=== PATIENT | male | born 1940 | race Caucasian/White ===

== ENCOUNTER → 2017-04-13 | Outpatient (CLI) | payer MEDICARE ==
[~2017-04-13] MED LIST: ATOR20TA PO; DOXA1TAB2 PO; GARL1TAB PO; METF10002 PO; NAPR500T3 PO; OMEG500C PO; TELM1TAB3 PO
[2017-04-13 14:53] LABS: BLOOD UREA NITROGEN 33 mg/dL (7-18)
[2017-04-13 14:57] LABS: ASPARTATE AMINO TRANSFERASE 10 U/L (15-37)
== END | disposition home or self-care (01) ==
LOC: STAR 13:33
PROVIDERS: ATTEND Surgery
DX: Z01.818 Encounter for other preprocedural examination (principal); R94.31 Abnormal electrocardiogram [ECG] [EKG]; K43.9 Ventral hernia without obstruction or gangrene
CPT/HCPCS: 36415; 80053; 93005

== ENCOUNTER 2017-04-22 11:53 | Day surgery (SDC) | payer MEDICARE ==
[~2017-04-22] VITALS: Ht 172.7 cm; Wt 89.5 kg
[~2017-04-22 11:53] MED LIST changes: +BUPIVACAINE/PF-EPI 0.5% 1:200K ONE; +CEFAZOLIN 1,000 MG ONE; +GLYCOPYRROLATE 0.2MG/1ML ONE; +NEOSTIGMINE 1 MG/ML, 10ML ONE; +PROPOFOL 10 MG/ML, 20ML ONE; +ROCURONIUM 10 MG/ML ONE
[2017-04-22 12:27] VITALS: BP 158/72
[2017-04-22] MEDS ORDERED: LACTATED RINGERS 1,000 ML IV SCH (12:35)
[2017-04-22] MEDS ORDERED: LIDOCAINE 1%, 2ML SQ PRN (13:00)
[2017-04-22] MEDS ORDERED: LABETALOL 5MG/ML, 20ML IV PRN (14:00)
[2017-04-22] MEDS ORDERED: OXYcodone 5 MG/5 ML ORAL.SOL UDC PO PRN (14:00)
[2017-04-22] MEDS ORDERED: PROMETHAZINE 25 MG/ML, 1ML IV PRN (14:00)
[2017-04-22] MEDS ORDERED: ONDANSETRON 2MG/ML, 2ML IVPush PRN (14:00)
[2017-04-22] MEDS ORDERED: METOCLOPRAMIDE 5 MG/ML, 2ML IV PRN (14:00)
[2017-04-22] MEDS ORDERED: MEPERIDINE/PF 25MG/0.5ML IVPush PRN (14:00)
[2017-04-22] MEDS ORDERED: FENTANYL PF 100 MCG/2ML ONE ×4 (15:15→18:11)
[2017-04-22] MEDS ORDERED: OXYcodone 5 MG/5 ML ORAL.SOL UDC ONE (16:39)
[2017-04-22] MEDS: FENTANYL PF 100 MCG/2ML IV PRN ×5 (16:42→18:16)
[2017-04-22] MEDS ORDERED: HYDROmorphone 1 MG/ML, 1ML ONE (16:47)
[2017-04-22] MEDS: HYDROmorphone 1 MG/ML, 1ML IV PRN ×2 (16:52→17:02)
[2017-04-22] MEDS ORDERED: hydrALAzine 20 MG/ML, 1ML ONE (17:06)
[2017-04-22] MEDS: hydrALAzine 20 MG/ML, 1ML IV PRN ×2 (17:11→17:36)
[2017-04-22] MEDS ORDERED: MEPERIDINE/PF 25MG/0.5ML ONE (17:56)
[2017-04-22] MEDS ORDERED: ONDANSETRON 2MG/ML, 2ML ONE (18:12)
[2017-04-22] MEDS ORDERED: KETOROLAC 30 MG/1 ML ONE (18:21)
[2017-04-22] MEDS ORDERED: KETOROLAC 30 MG/1 ML IVPush SCH (18:30)
[2017-04-22] MEDS ORDERED: OXYcodone/APAP 5/325MG TABLET ONE (20:13)
[2017-04-22] MEDS ORDERED: OXYcodone/APAP 5/325MG TABLET PO PRN (20:30)
== END 2017-04-22 20:55 ==
LOC: OUT 11:53
PROVIDERS: ATTEND Surgery
DX: K43.6 Other and unspecified ventral hernia with obstruction, without gangrene (principal); E11.9 Type 2 diabetes mellitus without complications; I10 Essential (primary) hypertension; E78.5 Hyperlipidemia, unspecified; Z98.890 Other specified postprocedural states; Z72.89 Other problems related to lifestyle; Z88.5 Allergy status to narcotic agent
CPT/HCPCS: 49653; 82962; C1781; J0360; J0690; J1170; J1885; J2175; J2250; J2405; J2704; J2710; J3010; J3490; J7120

== ENCOUNTER → 2018-04-20 | Outpatient (CLI) | payer MEDICARE ==
[~2018-04-20] MED LIST changes: +ASCO100019 PO; +ASPI-621 PO; -BUPIVACAINE/PF-EPI 0.5% 1:200K ONE; -CEFAZOLIN 1,000 MG ONE; +FINA5TAB4 PO; +FOLI-17 PO; -GARL1TAB PO; +GARL1TAB2 PO; -GLYCOPYRROLATE 0.2MG/1ML ONE; +LATA2.5D3 EACHEYE; +METF500T5 PO; +NAPR-685 PO; -NAPR500T3 PO; -NEOSTIGMINE 1 MG/ML, 10ML ONE; -PROPOFOL 10 MG/ML, 20ML ONE; -ROCURONIUM 10 MG/ML ONE; +TAMS-11 PO
[2018-04-20 15:48] LABS: ANION GAP 9 mmol/L (5-15); CALCIUM 9.1 mg/dL (8.5-10.1); CHLORIDE 114 mmol/L (98-107)
[2018-04-20 15:49] LABS: ALANINE AMINOTRANSFERASE 15 U/L (12-78); ALBUMIN 3.8 g/dL (3.4-5.0)
[2018-04-20 15:50] LABS: ALKALINE PHOSPHATASE 78 U/L (45-117); BILIRUBIN,TOTAL 0.6 mg/dL (0.2-1.0); TOTAL PROTEIN 6.9 g/dL (6.4-8.2)
== END | disposition home or self-care (01) ==
LOC: STAR 14:17
PROVIDERS: ATTEND Surgery
DX: Z01.818 Encounter for other preprocedural examination (principal); K42.9 Umbilical hernia without obstruction or gangrene; I44.0 Atrioventricular block, first degree; R00.1 Bradycardia, unspecified
CPT/HCPCS: 36415; 80053; 93005

== ENCOUNTER 2018-05-04 10:29 | Day surgery (SDC) | payer MEDICARE ==
[~2018-05-04] VITALS: Ht 172.7 cm; Wt 89.2 kg
[2018-05-04 10:57] VITALS: BP 135/68
[2018-05-04] MEDS ORDERED: LACTATED RINGERS 1,000 ML IV SCH (10:59)
[2018-05-04] MEDS ORDERED: LIDOCAINE-MPF 1%, 2ML INFIL ONE (11:00)
[2018-05-04] MEDS ORDERED: CELE200C PO (11:02)
[2018-05-04] MEDS ORDERED: CEFAZOLIN 1,000 MG ONE ×2 (11:11)
[2018-05-04] MEDS ORDERED: FENTANYL PF 250 MCG/5ML ONE (11:11)
[2018-05-04] MEDS ORDERED: SUCCINYLCHOLINE 20 MG/ML, 10ML ONE (11:13)
[2018-05-04] MEDS ORDERED: PROPOFOL 10 MG/ML, 20ML ONE ×2 (11:15)
[2018-05-04] MEDS ORDERED: EPHEDRINE 50 MG/ML, 1ML ONE ×2 (11:17→11:19)
[2018-05-04] MEDS ORDERED: ONDANSETRON 2MG/ML, 2ML ONE (11:19)
[2018-05-04] MEDS ORDERED: ACETAMINOPHEN 500 MG TABLET PO ONE (11:30)
[2018-05-04] MEDS ORDERED: FAMOTIDINE 20 MG TABLET PO ONE (11:30)
[2018-05-04] MEDS ORDERED: OXYcodone IR 5MG TABLET PO ONE (11:30)
[2018-05-04] MEDS ORDERED: BACITRACIN 50,000 UNIT ONE (11:40)
[2018-05-04] MEDS ORDERED: BUPIVACAINE/PF-EPI 0.5% 1:200K ONE (11:40)
[2018-05-04] MEDS ORDERED: BUPIVACAINE/PF-EPI 0.5% 1:200K INFIL ONE (13:19)
[2018-05-04] MEDS ORDERED: GLYCOPYRROLATE 0.2MG/1ML, 5ML ONE (13:28)
[2018-05-04] MEDS ORDERED: FENTANYL PF 100 MCG/2ML IV PRN (14:00)
[2018-05-04] MEDS ORDERED: PROMETHAZINE 25 MG/ML, 1ML IV PRN (14:00)
[2018-05-04] MEDS ORDERED: OXYcodone 5 MG/5 ML ORAL.SOL UDC PO PRN (14:00)
[2018-05-04] MEDS ORDERED: LIDOCAINE GEL 2%, 5ML TP ONE (17:00)
== END 2018-05-04 18:20 ==
LOC: OUT 10:29
PROVIDERS: ATTEND Surgery
DX: K43.2 Incisional hernia without obstruction or gangrene (principal); K21.9 Gastro-esophageal reflux disease without esophagitis; E11.9 Type 2 diabetes mellitus without complications; I10 Essential (primary) hypertension; Z98.890 Other specified postprocedural states
CPT/HCPCS: 49565; 49568; 82962; C1781; J0330; J0690; J2405; J2704; J3010; J3490; J7120

== ENCOUNTER → 2020-11-16 | Outpatient (CLI) | payer MEDICARE ==
[~2020-11-16] MED LIST changes: -ASPI-621 PO; +ASPI81TA45 PO; +CELE200C PO; -FOLI-17 PO; +FOLI1TAB32 PO; -LATA2.5D3 EACHEYE; +LATA2.5D4 EACHEYE; +METF500T17 PO; -METF500T5 PO
== END | disposition home or self-care (01) ==
LOC: RAD 10:37
PROVIDERS: ATTEND Internal Medicine Cardiovascular Disease
DX: Z01.810 Encounter for preprocedural cardiovascular examination (principal); I65.23 Occlusion and stenosis of bilateral carotid arteries; I06.1 Rheumatic aortic insufficiency; I70.0 Atherosclerosis of aorta; R06.02 Shortness of breath; Z20.822 Contact with and (suspected) exposure to COVID-19
CPT/HCPCS: 71250; 74176; 87635; 93880; 93978

== ENCOUNTER → 2020-12-18 | Outpatient (CLI) | payer MEDICARE ==
[~2020-12-18] MED LIST changes: +FERR324T5 PO; +FURO40TA6 PO; +HYDR100T25 PO; +TELM80TA PO; +[UNRECOGNIZED DRUG - OTHER] PO
== END | disposition home or self-care (01) ==
LOC: CFH 12:23
PROVIDERS: ATTEND Internal Medicine Cardiovascular Disease
DX: Z01.810 Encounter for preprocedural cardiovascular examination (principal); I37.1 Nonrheumatic pulmonary valve insufficiency; I11.9 Hypertensive heart disease without heart failure; R06.02 Shortness of breath; I65.29 Occlusion and stenosis of unspecified carotid artery
CPT/HCPCS: 93306